=== PATIENT | male | born 1930 | race Caucasian/White ===

== ENCOUNTER → 2017-04-28 13:13 | Outpatient (CLI) | payer MEDICARE, BC ==
[2016-07-03 14:29] VITALS: BMI 22.3
[~2017-04-28 13:13] MED LIST: ANTIVERT25 MG PO; ASPIRIN325 MG PO; CLARITIN 10 MG10 MG PO; COREG 3.1253.125 MG PO; FLOMAX0.4 MG PO; HYDROCODON-ACE1 EAC7 PO; JEVITY 1.5 CAL237 ML; LEVOTHROID50 MCG PEG; PLAVIX75 MG PEG; PRAVACHOL40 MG PEG; PRINIVIL20 MG PEG; PRO-STAT PEG; SYNTHROID75 MCG PO; ULTRAM50 MG PO; ZANTAC150 MG PEG; ZYLOPRIM300 MG PEG
== END | disposition home or self-care (01) ==
LOC: D.US 13:13
DX: I65.23 Occlusion and stenosis of bilateral carotid arteries (principal)